=== PATIENT | male | born 1995 ===

== ENCOUNTER → 2019-04-14 | Outpatient (CLI) | payer OTHER | LOC: MHCPAIN 10:33 | DX: M47.817 Spondylosis without myelopathy or radiculopathy, lumbosacral region (principal); M54.16 Radiculopathy, lumbar region | CPT/HCPCS: G0463 ==

== ENCOUNTER → 2019-04-17 | Outpatient (CLI) | payer OTHER | LOC: MHCPAIN 07:53 | DX: M54.16 Radiculopathy, lumbar region (principal); M51.26 Other intervertebral disc displacement, lumbar region | CPT/HCPCS: J1100; Q9967 ==

== ENCOUNTER → 2019-04-30 | Outpatient (CLI) | payer OTHER | LOC: MHCPAIN 08:00 | DX: M47.817 Spondylosis without myelopathy or radiculopathy, lumbosacral region (principal); M54.16 Radiculopathy, lumbar region | CPT/HCPCS: G0463 ==